=== PATIENT | male | born 1990 | race Hispanic/Latino ===

== ENCOUNTER 2020-02-27 12:13 | Emergency (ER) | payer MEDICAID, OTHER | END 2020-02-27 13:00 | disposition home or self-care (01) | LOC: EDH 12:13 | DX: S50.812A Abrasion of left forearm, initial encounter (principal); S50.811A Abrasion of right forearm, initial encounter; Z72.0 Tobacco use; X58.XXXA Exposure to other specified factors, initial encounter; Y93.89 Activity, other specified; Y92.89 Other specified places as the place of occurrence of the external cause; Y99.8 Other external cause status ==

== ENCOUNTER 2020-11-19 19:49 | Emergency (ER) | payer OTHER ==
[~2020-11-19] VITALS: Ht 167.6 cm; Wt 56.7 kg
[2020-11-19 20:35] LABS: BASOPHILS % (AUTO) 0.5 % (0.0-5.0); EOSINOPHILS % (AUTO) 1.6 % (0.0-8.0); HEMATOCRIT 38.4 % (42-54); LYMPHOCYTES % (AUTO) 25.7 % (21.0-51.0); MEAN CORPUSCULAR HEMOGLOBIN 31.9 pg (27.0-33.0); MEAN CORPUSCULAR HGB CONC 35.7 g/dL (32.0-36.0); MEAN CORPUSCULAR VOLUME 89.3 fL (79-99); MONOCYTES % (AUTO) 6.6 % (3.0-13.0); NEUTROPHILS % (AUTO) 65.4 % (40.0-77.0); PLATELET COUNT (AUTO) 334 K/uL (130-400); RED CELL DISTRIBUTION WIDTH 12.6 % (11.0-15.5); WHITE BLOOD COUNT (AUTO) 8.8 K/uL (4.8-10.8)
[2020-11-19 20:49] LABS: CREATININE 0.7 mg/dL (0.5-1.5); POTASSIUM 3.5 mmol/L (3.5-5.1)
[2020-11-19 20:54] LABS: BILIRUBIN,TOTAL 0.2 mg/dL (0.2-1.0); TOTAL PROTEIN, SERUM 8.2 g/dL (6.0-8.3)
[2020-11-19] MEDS ORDERED: GENTAMICIN 120 MG IN 100ML NS 100 ML IV ONE (21:30)
[2020-11-19] MEDS ORDERED: VANCOMYCIN 750MG + NS 250 ML IV ONE ×2 (21:30)
== END 2020-11-19 21:14 | disposition left against medical advice (07) ==
LOC: EDH 19:49
DX: L03.113 Cellulitis of right upper limb (principal)
CPT/HCPCS: 36415; 80053; 85025; 87040 ×2; 87070; 87076; 87077; 87186; 99283; J1580; J3370; J7050

== ENCOUNTER 2020-11-20 15:45 | Emergency (ER) | payer OTHER | END 2020-11-20 17:59 | disposition left against medical advice (07) | LOC: EDH 15:45 | DX: L03.011 Cellulitis of right finger (principal) ==